=== PATIENT | male | born 1980 | race Caucasian/White ===

== ENCOUNTER → 2016-12-28 | Outpatient (CLI) | payer BC ==
[~2016-12-28] MED LIST: LORTAB 5/500 TA1 TA1 PO
[2016-12-28 11:21] LABS: URINE APPEARANCE SL HAZY; URINE BLOOD NEG (NEG); URINE COLOR YELLOW; URINE GLUCOSE NORM (NORM); URINE KETONE NEG (NEG); URINE LEUKOCYTE ESTERASE NEG (NEG); URINE NITRATE NEG (NEG); URINE PROTEIN 1+ (NEG); URINE UROBILINOGEN 8 MG/DL (NORM)
[2016-12-28 11:24] LABS: URINE BILIRUBIN NEG (NEG); URINE SOURCE CLEAN CATCH
[2016-12-28 11:26] LABS: CULTURE INDICATED? NO; URBCS1 AUWI 0-2 /[HPF] (0-2)
[2016-12-28 11:27] LABS: URINE AMORPHOUS SEDIMENT AMORP URATES; URINE BACTERIA AUWI NEG (NEGATIVE); URINE MUCUS PRESENT; URINE YEAST PRESENT
[2016-12-28 12:09] LABS: ALBUMIN SERUM 4.8 g/dL (3.5-5.0); BUN/CREATININE RATIO 13.33; CALCIUM SERUM 9.3 mg/dL (8.4-10.2); CREATININE SERUM 0.9 mg/dL (0.6-1.4); GLOM FILT RATE Estimated 110.3 mL/min (>60); POTASSIUM 4.1 mmol/L (3.5-5.1); PROTEIN TOTAL SERUM 7.8 g/dL (6.0-8.3)
== END | disposition home or self-care (01) ==
LOC: CLAB 10:01
PROVIDERS: Nurse Practitioner Family
DX: Z13.220 Encounter for screening for lipoid disorders (principal); E11.9 Type 2 diabetes mellitus without complications; G43.109 Migraine with aura, not intractable, without status migrainosus
CPT/HCPCS: 36415; 80053; 80061; 81003